=== PATIENT | male | born 1975 | race Hispanic/Latino ===

== ENCOUNTER 2021-04-28 20:43 | Emergency (ER) | payer OTHER ==
[~2021-04-28] VITALS: Ht 177.8 cm; Wt 81.6 kg
[2021-04-28] MEDS ORDERED: AUGMENTIN 500-1 EACH PO (21:42)
== END 2021-04-28 22:25 | disposition home or self-care (01) ==
LOC: FSED 20:58
DX: S61.210A Laceration without foreign body of right index finger without damage to nail, initial encounter (principal); W26.8XXA Contact with other sharp object(s), not elsewhere classified, initial encounter; Y92.008 Other place in unspecified non-institutional (private) residence as the place of occurrence of the external cause
CPT/HCPCS: 99283